=== PATIENT | female | born 1985 | race American Indian/Alaskan Native ===

== ENCOUNTER 2023-02-12 22:11 | Observation (INO) | payer OTHER ==
[2023-02-12] MEDS ORDERED: 50% Dextrose in Water 50 ML Syringe IVPUSH ONE (22:24)
[2023-02-12] MEDS ORDERED: Ondansetron 4 MG/2 ML SDV IVPUSH ONE (22:27)
[2023-02-12 22:42] LABS: BASOPHILS PERCENT AUTO 0.1 % (0.0-1.0); EOSINOPHILS PERCENT AUTO 0.6 % (1.0-3.0); HEMATOCRIT 40.8 % (37.0-47.0); HEMOGLOBIN 13.8 g/dL (12.0-16.0); LYMPHOCYTES PERCENT AUTO 12.6 % (20.5-50.1); MEAN CORPUSCULAR HEMOGLOBIN 29.5 pg (27.0-34.0); MEAN CORPUSCULAR HGB CONC 33.8 g/dL (33.0-35.0); MEAN CORPUSCULAR VOLUME 87.2 fL (80-100); MONOCYTES PERCENT AUTO 4.8 % (2-8); NEUTROPHILS PERCENT AUTO 81.9 % (42.2-75.2); PLATELET COUNT,PLT 215 10^3/uL (150-450); RED BLOOD CELL COUNT 4.68 10^6/uL (4.2-5.4); WHITE BLOOD CELL COUNT,WBC 16.3 10^3/uL (5.0-10.0)
[2023-02-12 22:58] LABS: HEMOGLOBIN A1C 7.5 % (<5.7)
[2023-02-12 23:12] LABS: A/G RATIO 0.9; ALANINE AMINOTRANSFERASE,ALT 22 U/L (14-59); ALBUMIN 3.5 g/dL (3.4-5.0); ALKALINE PHOSPHATASE 66 U/L (46-116); ANION GAP 15.4 mEq/L (7-13); ASPARTATE AMNIOTRANSFERASE,AST 18 U/L (15-37); BILIRUBIN TOTAL 0.3 mg/dL (0.2-1.0); BLOOD UREA NITROGEN,BUN 15 mg/dL (7-18); BUN/CREATININE RATIO 25.4 (No establ ref range); CALCIUM 8.4 mg/dL (8.5-10.1); CARBON DIOXIDE,CO2 25 mmol/L (21-32); CHLORIDE,CL 104 mmol/L (98-107); CREATININE 0.59 mg/dL (0.55-1.02); EST CRCL DRUG DOSING (CG) 124.59 mL/min; MAGNESIUM 1.7 mg/dL (1.8-2.4); PHOSPHORUS 3.4 mg/dL (2.6-4.7); POTASSIUM,K 3.4 mmol/L (3.5-5.1); PROTEIN TOTAL,TP 7.2 g/dL (6.4-8.2); SODIUM,NA 141 mmol/L (136-145)
[2023-02-12 23:15] LABS: ESTIMATED GFR 120 mL/min (>=60); GLUCOSE RANDOM 38 mg/dL (70-99)
[2023-02-12 23:16] LABS: ETHANOL BLOOD MEDICAL < 3 mg/dL (0)
[2023-02-12 23:48] LABS: APPEARANCE,URINE SLIGHTLY CLOUDY (CLEAR); BILIRUBIN,URINE NEGATIVE (NEGATIVE); COLOR,URINE YELLOW (YELLOW); GLUCOSE,URINE 250 (NEGATIVE); KETONES,URINE NEGATIVE (NEGATIVE); LEUKOCYTE ESTERASE,URINE TRACE (NEGATIVE); NITRITE,URINE POSITIVE (NEGATIVE); OCCULT BLOOD,URINE NEGATIVE (NEGATIVE); PROTEIN,URINE NEGATIVE (NEGATIVE); UROBILINOGEN,URINE 0.2 mg/dL (0.2-1.0)
[2023-02-12] MEDS ORDERED: Metoclopramide 10 MG/2 ML SDV IVPUSH ONE (23:48)
[2023-02-12] MEDS: Sodium Chloride 0.9% 10 ML Syringe FLUSH PRN (23:55)
[2023-02-12 23:57] LABS: AMPHETAMINES,URINE NEGATIVE (NEGATIVE); BARBITURATES,URINE NEGATIVE (NEGATIVE); BENZODIAZEPINE,URINE NEGATIVE (NEGATIVE); MDMA (ECSTASY), URINE NEGATIVE (NEGATIVE); METHADONE,URINE NEGATIVE (NEGATIVE); METHAMPHETAMINES,URINE NEGATIVE (NEGATIVE); OPIATES,URINE NEGATIVE (NEGATIVE); OXYCODONE,URINE NEGATIVE (NEGATIVE); PHENCYCLIDINE,URINE NEGATIVE (NEGATIVE); TCA,URINE NEGATIVE (NEGATIVE)
[2023-02-13] LABS: BACTERIA,URINE MANY /HPF (0-FEW/HPF); EPITHELIAL CELLS,URINE MODERATE /HPF (NOT SEEN); MUCUS,URINE FEW /LPF (NOT SEEN); WBC,URINE 20-30 /HPF (0-5/HPF)
[2023-02-13] MEDS ORDERED: Dextrose 10% in Water 500 ML IV ONE (00:01)
[2023-02-13] MEDS ORDERED: Dextrose 10% in Water 500 ML IV SCH (00:51)
[2023-02-13] MEDS ORDERED: Ondansetron 4 MG/2 ML SDV IVPUSH PRN ×2 (03:58→10:27)
[2023-02-13] MEDS: Sodium Chloride 0.9% 10 ML Syringe FLUSH PRN ×2 (04:21→10:53)
[2023-02-13] MEDS ORDERED: Acetaminophen 325 MG Tab PO PRN (10:27)
[2023-02-13] MEDS ORDERED: Dextrose 5%-0.45% NaCl 1,000 ML IV SCH (10:30)
[2023-02-13] MEDS: cefTRIAXone 1 GM Vial IVPUSH SCH (10:45)
[2023-02-14] MEDS ORDERED: Levothyroxine 150 MCG Tab PO SCH (06:00)
[2023-02-14] MEDS ORDERED: Enoxaparin 40 MG/0.4 ML Syringe SUBCUT SCH (09:00)
[2023-02-14] MEDS: cefTRIAXone 1 GM Vial IVPUSH SCH ×2 (09:07→09:32)
== END 2023-02-14 10:47 | disposition home or self-care (01) ==
LOC: DL.ED 22:11 → DL.MS 02-13 00:04
PROVIDERS: ADMIT Internal Medicine; ATTEND Internal Medicine
DX: E11.649 Type 2 diabetes mellitus with hypoglycemia without coma (principal); F17.200 Nicotine dependence, unspecified, uncomplicated; E03.9 Hypothyroidism, unspecified; Z79.890 Hormone replacement therapy; Z79.899 Other long term (current) drug therapy; Z88.6 Allergy status to analgesic agent; Z79.4 Long term (current) use of insulin
CPT/HCPCS: 36415; 71045; 80053; 80305-QW; 80307; 81001; 82947; 83036; 83735; 84100; 84145; 84484; 85025; 87040; 87077; 87086; 87088; 87186; 93005; 96361; 96374; 96375; 96376; 99222; 99239; 99284; 99285-25; A9270-GY; G0378; J0696; J2405; J2765; J3490; J7042